=== PATIENT | male | born 1990 ===

== ENCOUNTER 2017-01-06 22:40 | Observation (INO) | payer OTHER ==
[2017-01-06] MEDS ORDERED: Sodium Chloride 0.9% 1,000 ML IV STA (23:03)
[2017-01-06 23:23] LABS: BASO # 0.1 K/uL (0.0-0.2); BASO % 0.8 % (0.0-2.0); EOS # 0.1 K/uL (0.0-0.7); EOS % 0.9 % (0.0-4.0); HEMATOCRIT 48.5 % (35.0-51.0); LYMPH # 6.8 K/uL (1.0-4.3); LYMPH % 50.3 % (20.0-40.0); MEAN CORPUSCULAR HEMOGLOBIN 29.7 pg (27.0-31.0); MEAN CORPUSCULAR HGB CONC 33.8 g/dL (33.0-37.0); MEAN PLATELET VOLUME 11.5 fl (7.2-11.7); MONO # 1.2 K/uL (0.0-0.8); NEUT # 5.2 K/uL (1.8-7.0); NRBC % 0.1 % (0.0-0.0); RED CELL DISTRIBUTION WIDTH 12.8 % (11.5-14.5); WHITE BLOOD COUNT 13.4 K/uL (4.8-10.8)
[2017-01-06 23:30] LABS: ALB/GLOB RATIO 1.1 (1.0-2.1); ALCOHOL SERUM < 10 mg/dl (0-10); ALKALINE PHOSPHATASE 294 U/L (38-126); ALT/SGPT 73 U/L (21-72); AST/SGOT 50 U/L (17-59); BLOOD UREA NITROGEN 23 mg/dl (9-20); CALCIUM 9.8 mg/dL (8.4-10.2); CARBON DIOXIDE 22 mmol/L (22-30); CHLORIDE 97 mmol/L (98-107); GFR AFRICAN-AMERICAN > 60; GLUCOSE,RANDOM 373 mg/dL (75-110); SODIUM 141 mmol/l (132-148); TOTAL PROTEIN 9.5 G/DL (6.3-8.2)
[2017-01-06 23:32] LABS: POTASSIUM 4.8 MMOL/L (3.6-5.0)
[2017-01-06] MEDS ORDERED: Insulin Regular 100 units/ml IV STA (23:39)
--- NOTE | 2017-01-07 00:03 | ED PDOC ---
HPI: Psych/Substance Abuse Time Seen by Provider: 01/06/17 22:52 Chief Complaint (Nursing): Substance Abuse Chief Complaint (Provider): Substance Abuse History Per: EMS History/Exam Limitations: no limitations Current Symptoms Are (Timing): Still Present Associated Symptoms: Agitation Additional Complaint(s): Johny Morillo is a 26 y/o male brought in by EMS on 01/07/2017 to the ER with substance abuse prior to arrival. History obtained per EMS, who states patient consumed a small amount of a brownie containing an unknown substance. After ingesting the brownie, he gradually developed agitation along with unusual behavior described as "bizarre". EMS was notified and arrived on scene, finding the patient to be delirious, agitated, and tachycardic. Upon arrival, patient was placed in restraints for safety purposes. He complains of mild chest pain and thanatophobia. Additional history was obtained per the pt's mother who is at bedside. Pt has a past medical history of Diabetes Mellitus. Further HPI/ROS is limited due to patient's clinical state of delirium. Past Medical History Reviewed: Historical Data, Nursing Documentation, Vital Signs Vital Signs: Last Vital Signs Temp Pulse 115 H 01/06/17 22:58 Resp 30 H 01/06/17 22:58 BP 167/109 H 01/06/17 22:58 Pulse Ox 99 01/06/17 22:58 - Medical History PMH: Diabetes - Surgical History Surgical History: No Surg Hx - Family History Family History: States: Unknown Family Hx - Social History Current smoker - smoking cessation education provided: No Alcohol: None - Allergies Allergies/Adverse Reactions: Allergies Allergy/AdvReac Type Severity Reaction Status Date / Time No Known Allergies Allergy Verified 01/06/17 22:59 Review of Systems Review Of Systems: ROS cannot be obtained secondary to pt's inabilty to answer questions. Physical Exam - Reviewed Nursing Documentation Reviewed: Yes Vital Signs Reviewed: Yes - Physical Exam Appears: Positive for: Uncomfortable (obese appearing ) Head Exam: Positive for: ATRAUMATIC, NORMOCEPHALIC Skin: Positive for: Normal Color, Warm, Dry Eye Exam: Positive for: EOMI. Negative for: PERRL (dilated pupils ) Neck: Positive for: Normal, Painless ROM, Supple Cardiovascular/Chest: Positive for: Tachycardia Respiratory: Positive for: Normal Breath Sounds. Negative for: Wheezing, Respiratory Distress Gastrointestinal/Abdominal: Positive for: Normal Exam, Soft. Negative for: Tenderness Extremity: Positive for: Normal ROM. Negative for: Deformity, Swelling Neurologic/Psych: Positive for: Alert, Oriented (x2), Other (agiated ). Negative for: Motor/Sensory Deficits - Laboratory Results Result Diagrams: 01/06/17 23:18 01/06/17 23:18 - ECG ECG Rhythm: Positive for: Normal QRS, Sinus Tachycardia (@ 102 ). Negative for : ST/T Changes O2 Sat by Pulse Oximetry: 99 - Progress Re-evaluation Time: 03:00 Condition: Re-examined, Improved Medical Decision Making Medical Decision Makin:52 Initial Impression- Substance abuse, substance induced delirium. Possible amphetamine ingestion with sympathomimetic syndrome. Initial Plan- * EKG * Drug Screen * Urine Dip * CXR Portable * Ativan 2 mg IV * Insulin 10 units IV * Sodium Chloride 1,000 ml IV 03:11 Pt was re-evaluated. Pt is awake, alert and reports improved condition. Vital signs are normal and hyperglycemia has improved. Pt requires no further treatment in the ED and is stable for discharge. Encouraged to schedule a follow up with PMD within 1-2 days. Advised to return if condition persists or worsen. Documented by Ben Mejía, acting as a scribe for Cale Garcia MD. All medical record entries made by the Scribe were at my direction and personally dictated by me. I have reviewed the chart and agree that the record accurately reflects my personal performance of the history, physical exam, medical decision making, and the department course for this patient. I have also personally directed, reviewed, and agree with the discharge instructions and disposition. Disposition - Clinical Impression Clinical Impression: Substance abuse, Marijuana abuse, Hyperglycemia due to type 1 diabetes mellitus - Patient ED Disposition Is Patient to be Admitted: No Doctor Will See Patient In The: Office Counseled Patient/Family Regarding: Studies Performed, Diagnosis, Need For Followup - Disposition Disposition: Routine/Home Disposition Time: 03:09 Condition: GOOD
[2017-01-07] MEDS ORDERED: Insulin Regular 100 units/ml ONE (00:06)
[2017-01-07 03:32] VITALS: BP 119/71; PULSE 92; RESP 15
[2017-01-07 04:30] VITALS: O2SAT 99
--- NOTE | 2017-01-07 08:39 | RAD ---
HISTORY: chest pain COMPARISON: No prior. FINDINGS: LUNGS: No active pulmonary disease. PLEURA: No significant pleural effusion identified, no pneumothorax apparent. CARDIOVASCULAR: Normal. OSSEOUS STRUCTURES: No significant abnormalities. VISUALIZED UPPER ABDOMEN: Normal. OTHER FINDINGS: None. IMPRESSION: No active disease. Suboptimal portable study with poor inspiratory effort.
--- NOTE | 2017-01-08 11:45 | CARD ---
APPROVED REPORT EKG Measurement Heart [id number] <Conclusion> Sinus tachycardia Prolonged QT Abnormal ECG
== END 2017-01-07 03:11 | disposition home or self-care (01) ==
LOC: H.ER 22:40 → H.EROBSV 23:04
PROVIDERS: ADMIT Emergency Medicine; ATTEND Emergency Medicine
DX: F12.10 Cannabis abuse, uncomplicated (principal); E10.65 Type 1 diabetes mellitus with hyperglycemia; Z78.1 Physical restraint status